=== PATIENT | female | born 1950 | race Caucasian/White ===

== ENCOUNTER 2023-02-26 10:52 | Emergency (ER) | payer OTHER, MEDICARE, SELFPAY ==
--- NOTE | ~2023-02-26 | XR_ITS ---
EXAMINATION: XR wrist LT min 3V DATE: 02/26/2023 11:39 INDICATION: Left wrist injury. TECHNIQUE: 3 views of left wrist were obtained. COMPARISON: None. FINDINGS: Bone alignment is normal. No fracture. There is mild osteoarthritis of triscaphe joint and severe osteoarthritis of first carpometacarpal joint. There is mild osteoarthritis of first metacarpo phalangeal joint and moderate osteoarthritis of first interphalangeal joint. IMPRESSION: 1. No fracture. 2. Polyarticular osteoarthritis. Reviewed, dictated and finalized at location A.
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
[2023-02-26 11:13] VITALS: BP 145/60; PULSE 64; RESP 20; TEMP 36.3; O2SAT 98
[2023-02-26 12:25] VITALS: BP 148/72; PULSE 72; RESP 18; O2SAT 98
--- NOTE | 2023-02-26 12:32 | PC.NURSE ---
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 +PMS POST RAYSA APPLICATION
== END 2023-02-26 12:25 | disposition home or self-care (01) ==
PROVIDERS: Emergency Provider Nurse Practitioner; PCP Physician Assistant
DX: S60.212A Contusion of left wrist, initial encounter (principal); V43.52XA Car driver injured in collision with other type car in traffic accident, initial encounter; M19.032 Primary osteoarthritis, left wrist
CPT/HCPCS: 73110; 99213; G0463

== ENCOUNTER → 2023-03-19 14:51 | Outpatient (CLI) | payer SELFPAY ==
--- NOTE | ~2023-03-19 | XR_ITS ---
XR wrist LT min 3V DATE: 03/19/2023 15:48 INDICATION: Left wrist pain TECHNIQUE: AP, lateral, bilateral oblique views COMPARISON: 02/26/2023 left wrist FINDINGS: Osteoarthritic changes noted at the triscaphe and first carpometacarpal joint, interphalang eal joint of the first digit. No fracture or dislocation, periosteal reaction or bone destruction, erosive change or chondrocalcino sis is detected. IMPRESSION: Osteoarthritis Reviewed, dictated and finalized at location L. IMPRESSION: Osteoarthritis
== END ==
PROVIDERS: PCP Family Medicine; Visit Provider Physician Assistant
DX: M19.032 Primary osteoarthritis, left wrist (principal)
CPT/HCPCS: 73110

== ENCOUNTER 2025-05-01 01:30 | Day surgery (SDC) | payer MEDICARE, MEDICAID, SELFPAY ==
[2025-04-25 15:05] VITALS: BMI 19.3
[2025-05-01 08:05] VITALS: BP 121/60; PULSE 74; RESP 16; TEMP 36.6; O2SAT 96; BMI 19.2
[2025-05-01] MEDS: LACTATED RINGERS 1,000 ML 150 ML IV CONT (08:23)
--- NOTE | 2025-05-01 08:29 | P.PNAN_ITS ---
Anes - Initial Pre Proc Eval Procedure: Operation Date: 05/01/25 09:30 Proposed Procedures p Colonoscopy - Jackson Zamora MD Date/Time: 05/01/25 08:29 Surgeon: Jackson Zamora MD Pre Op Diagnosis: Other fecal abnormalities Patient Data Age: 74 Gender: F Height: 1.63 m Weight: 50.8 kg Last Vital Signs Temp 36.6 C 05/01/25 08:05 Pulse 74 05/01/25 08:05 Resp 16 05/01/25 08:05 BP 121/60 05/01/25 08:05 Pulse Ox 96 05/01/25 08:05 O2 Del Method Room Air 05/01/25 08:05 Allergies Allergy/AdvReac Type Severity Reaction Status Date / Time No Known Allergies Allergy Verified 05/01/25 08:10 Home Medications ?Medication ?Instructions ?Recorded ?Confirmed ?Type valacyclovir 1 gram tablet 2,000 mg (2 x 1 gram) PO BID 1 day 10/14/24 05/01/25 Rx #4 tabs triamcinolone acetonide 0.5 % See Rx Instructions .Route 01/02/25 04/25/25 Rx topical cream .COMPLEX #15 grams hydrochlorothiazide 12.5 mg tablet See Rx Instructions .Route 01/16/25 05/01/25 Rx .COMPLEX #90 tabs levothyroxine 75 mcg tablet See Rx Instructions .Route 01/16/25 05/01/25 Rx .COMPLEX #90 tabs lisinopril 20 mg tablet See Rx Instructions .Route 01/16/25 05/01/25 Rx .COMPLEX #90 tabs omeprazole 20 mg capsule,delayed See Rx Instructions .Route 01/16/25 05/01/25 Rx release .COMPLEX #90 caps rosuvastatin 5 mg tablet 5 mg PO DAILY #100 tabs 02/07/25 05/01/25 Rx hydrocodone 5 mg-acetaminophen 325 1 tablet PO BID PRN pain #60 tabs 03/01/25 04/25/25 Rx mg tablet diazepam 5 mg tablet 5 mg PO DAILY PRN Anxiety #30 tabs 03/15/25 04/25/25 Rx buspirone 5 mg tablet 5 mg PO BID #90 tabs 03/28/25 05/01/25 Rx Patient hx anesthesia problems: none Family hx anesthesia problems: none Results Review: All pre-operative results and documents have been reviewed as part of the pre- operative evaluation. [facility] Past Medical History Medical History Tobacco use Anxiety and depression Hyperlipidemia, mixed Essential hypertension Hypothyroidism Osteoarthritis GERD (gastroesophageal reflux disease) Allergic rhinitis Surgical History Surgical History History of hysterectomy 1975 History of lumpectomy of left breast 1971 Social History Social History Smoking status: Former smoker Tobacco type: cigarettes Alcohol intake: never Substance use: current Substance use type: marijuana Last use: daily Lack of Transportation: No Lack of Food: Never True Current Housing: I Have Housing Concerned About Future Housing: No Difficulty Paying Gas/Electric Bills: No Difficulty Paying for Meds: No Currently Unemployed: YES Education: Trade/Vocational Certificate Difficulty w/ Childcare or Family Care: No Living arrangements: alone Occupation/Education: retired Gender identity (if verbalized by the patient): Female Sexual Orientation (if Verbalized by the Patient): Straight or Heterosexual Spiritual care concerns: No Anes - Eval Final PreProcedure Day of Procedure 05/01/25 08:29 Patient weight: normal Heart: regular rate and rhythm Lungs: clear to auscultation Airway: Mallampati scale class II Neurological: alert and oriented Last oral intake: >/= 8 hours ASA classification: III Emergent: no Anesthetic plan: proceed Anesthesia type and monitoring: general GIVS and standard monitoring Results Review: All pre-operative results and documents have been reviewed as part of the pre- operative evaluation. Informed Consent: The patient's anesthetic plan and its attendant risks and benefits were discussed with the patient/family/POA. Questions were solicited and answers provided to the satisfaction of the patient/family/POA.
--- NOTE | 2025-05-01 09:09 | PM.HPGS ---
History of Present Illness History of Present Illness Consent: Risks, benefits, and alternatives have been discussed and questions answered. Patient agrees to proceed with procedure. Chief complaint: Other fecal abnormalities Narrative: Anai Patel is a 74 year old female here for first colonoscopy, + cologuard Review of Systems Review of Systems: All systems reviewed & are unremarkable except as noted in HPI and below SAUNDRASH Past Medical History Medical History (Updated 05/01/25 @ 09:09 by Jackson Zamora MD) Positive colorectal cancer screening using Cologuard test Tobacco use Anxiety and depression Hyperlipidemia, mixed Essential hypertension Hypothyroidism Osteoarthritis GERD (gastroesophageal reflux disease) Allergic rhinitis Surgical History Surgical History History of hysterectomy 1975 History of lumpectomy of left breast 1971 Social History Social History Smoking status: Former smoker Tobacco type: cigarettes Alcohol intake: never Substance use: current Substance use type: marijuana Last use: daily Lack of Transportation: No Lack of Food: Never True Current Housing: I Have Housing Concerned About Future Housing: No Difficulty Paying Gas/Electric Bills: No Difficulty Paying for Meds: No Currently Unemployed: YES Education: Trade/Vocational Certificate Difficulty w/ Childcare or Family Care: No Living arrangements: alone Occupation/Education: retired Gender identity (if verbalized by the patient): Female Sexual Orientation (if Verbalized by the Patient): Straight or Heterosexual Spiritual care concerns: No Meds Home Medications and Allergies Home Medications ?Medication ?Instructions ?Recorded ?Confirmed ?Type valacyclovir 1 gram tablet 2,000 mg (2 x 1 gram) PO BID 1 day 10/14/24 05/01/25 Rx #4 tabs triamcinolone acetonide 0.5 % See Rx Instructions .Route 01/02/25 04/25/25 Rx topical cream .COMPLEX #15 grams hydrochlorothiazide 12.5 mg tablet See Rx Instructions .Route 01/16/25 05/01/25 Rx .COMPLEX #90 tabs levothyroxine 75 mcg tablet See Rx Instructions .Route 01/16/25 05/01/25 Rx .COMPLEX #90 tabs lisinopril 20 mg tablet See Rx Instructions .Route 01/16/25 05/01/25 Rx .COMPLEX #90 tabs omeprazole 20 mg capsule,delayed See Rx Instructions .Route 01/16/25 05/01/25 Rx release .COMPLEX #90 caps rosuvastatin 5 mg tablet 5 mg PO DAILY #100 tabs 02/07/25 05/01/25 Rx hydrocodone 5 mg-acetaminophen 325 1 tablet PO BID PRN pain #60 tabs 03/01/25 04/25/25 Rx mg tablet diazepam 5 mg tablet 5 mg PO DAILY PRN Anxiety #30 tabs 03/15/25 04/25/25 Rx buspirone 5 mg tablet 5 mg PO BID #90 tabs 03/28/25 05/01/25 Rx Allergies Allergy/AdvReac Type Severity Reaction Status Date / Time No Known Allergies Allergy Verified 05/01/25 08:10 Vital Signs Vital Signs - 24 hr 05/01/25 08:05 Temperature 97.8 F Pulse Rate 74 Respiratory Rate 16 Blood Pressure 121/60 Pulse Oximetry 96 Oxygen Delivery Room Air Exam Const: General: comfortable and no acute distress HENMT: Face/Nose/Sinus: Normal nares present Eyes: General: appearance normal, both eyes and all related structures Neck: Neck: no JVD Resp: Auscultation: clear to auscultation bilaterally Cardio: Rate: regular rate Rhythm: regular rhythm GI: Inspection: non-distended GI Palp: Yes Soft to palpation Skin: General skin exam: normal color Neuro: General: gait normal Speech: normal speech Extrem: General: normal to inspection Psych: Mental Status: mental status grossly normal Assessment and Plan Assessment and plan (1) Positive colorectal cancer screening using Cologuard test: Code(s): R19.5 - Other fecal abnormalities Status: Acute Assessment and Plan: colonoscopy
[2025-05-01 09:26] VITALS: BP 118/58; PULSE 74; RESP 18; O2SAT 96
--- NOTE | 2025-05-01 09:26 | S_PTH ---
PATIENT: Anai Patel LOC: [facility] Parry#:[id number] AGE/SX: 74/F ROOM: RE05/01/[address]: Jackson Zamora MD : 1950 BED: DIS: 05/01/2025 SPEC #: [id number] RECD: 05/01/25 10:24 STATUS: DENNIS REAlana #: [id number] TRISHA: 05/01/25 09:[address]: Jackson Zamroa DEPT: [facility] Surgical RECD BY: Precious Horvath ENTERED: 05/01/25 10:25 SP TYPE: Surgical OTHR DR: Yefri Hutchins MD Tissues: A - Colon Polypectomy Procedures: Hematoxylin and Eosin Stain Gross and Microscopic Level 4
[2025-05-01 09:36] VITALS: BP 116/57; PULSE 70; RESP 23; O2SAT 98
[2025-05-01 09:46] VITALS: BP 129/61; PULSE 67; RESP 23; O2SAT 98
== END 2025-05-01 09:52 | disposition home or self-care (01) ==
PROVIDERS: PCP Family Medicine; Visit Provider Internal Medicine Gastroenterology
PROC: 0DJD8ZZ Inspection of Lower Intestinal Tract, Via Natural or Artificial Opening Endoscopic (ICD-10-PCS; CPT 45378; principal; 2025-05-01 09:30)
DX: D12.4 Benign neoplasm of descending colon (principal); K64.8 Other hemorrhoids; K57.30 Diverticulosis of large intestine without perforation or abscess without bleeding; F41.8 Other specified anxiety disorders; E78.5 Hyperlipidemia, unspecified; I10 Essential (primary) hypertension; E03.9 Hypothyroidism, unspecified; K21.9 Gastro-esophageal reflux disease without esophagitis; M19.90 Unspecified osteoarthritis, unspecified site; F12.90 Cannabis use, unspecified, uncomplicated; Z79.891 Long term (current) use of opiate analgesic; Z98.890 Other specified postprocedural states; Z87.891 Personal history of nicotine dependence
CPT/HCPCS: 45385; 88305; J2704; J7120

== ENCOUNTER 2025-09-17 17:57 | Emergency (ER) | payer MEDICARE, MEDICAID, SELFPAY ==
--- NOTE | ~2025-09-17 | XR_ITS ---
EXAMINATION: XR hand RT min 3V DATE: 09/17/2025 22:00 INDICATION: Right hand lacerations TECHNIQUE: Posteroanterior, oblique and lateral views of the right hand were obtained. COMPARISON: None. FINDINGS: Bone alignment is normal. No fracture. Polyarticular osteoarthritis, severe at the triscaphe and at the distal interphalangeal joints, moderate severity at the first carpal metacarpal joint, mild at the metacarpophalangeal joints and mild to moderate at the proximal interphalangeal joints. There is some bandaging material projecting over the base of thumb and thenar eminence. No radiopaque foreign bodies. IMPRESSION: 1. No acute osseous abnormality or radiopaque foreign bodies. 2. Severe polyarticular osteoarthritis. Reviewed, dictated and finalized at location A.
[2025-09-17 18:01] VITALS: BP 127/80; PULSE 75; RESP 17; TEMP 36.4; O2SAT 97
--- NOTE | 2025-09-17 20:58 | ED.WOUNDLAC ---
HPI - Wound/Laceration General Chief Complaint: Wound/Laceration Stated Complaint: right hand wound Time Seen by Provider: 09/17/25 19:58 Source: patient Mode of arrival: ambulatory Limitations: no limitations History of Present Illness HPI narrative: This is a 74 year old female that presents to the ER for lacerations to the right hand. Reports she put her hand in a pile of yard waste that had some metal in it. Reports she is not up to date on tetanus vaccination. Denies decreased ROM or numbness. Related Data Allergies Allergy/AdvReac Type Severity Reaction Status Date / Time No Known Allergies Allergy Verified 05/03/25 10:13 Review of Systems Review of Systems: All systems reviewed & are unremarkable except as noted in HPI and below PMFSH Past Medical History Medical History Positive colorectal cancer screening using Cologuard test Tobacco use Anxiety and depression Hyperlipidemia, mixed Essential hypertension Hypothyroidism Osteoarthritis GERD (gastroesophageal reflux disease) Allergic rhinitis Surgical History Surgical History History of hysterectomy 1975 History of lumpectomy of left breast 1971 Social History Social History Smoking status: Former smoker (Quit in January 2024, 1 PPD since 18 with 12 year cessation about 20 years ago.) Tobacco type: cigarettes Alcohol intake: never Substance use: current Substance use type: marijuana Last use: daily Lack of Transportation: No Lack of Food: Never True Current Housing: I Have Housing Concerned About Future Housing: No Difficulty Paying Gas/Electric Bills: No Difficulty Paying for Meds: No Currently Unemployed: YES Education: Trade/Vocational Certificate Difficulty w/ Childcare or Family Care: No Living arrangements: alone Occupation/Education: retired Gender identity (if verbalized by the patient): Female Sexual Orientation (if Verbalized by the Patient): Straight or Heterosexual Spiritual care concerns: No Exam Narrative: GENERAL: Well-appearing, well-nourished, and in no acute distress. HEAD: Normocephalic, atraumatic. EYES: EOMI. EXTREMITIES: Normal range of motion. No edema. 1 small lacerations to the palmar aspect of the hand. One large laceration to the dorsal aspect hand into subcutaneous tissue SKIN: Warm, dry, no rash. NEURO: No focal deficits. Alert and oriented x3. PSYCH: Normal mood and affect Course Vital Signs Vital signs: Vital Signs Temperature 97.6 F 09/17/25 18:01 Pulse Rate 75 09/17/25 18:01 Respiratory Rate 17 09/17/25 18:01 Blood Pressure 127/80 09/17/25 18:01 Pulse Oximetry 97 09/17/25 18:01 Temperature 97.6 F 09/17/25 18:01 Pulse Rate 75 09/17/25 18:01 Respiratory Rate 17 09/17/25 18:01 Blood Pressure 127/80 09/17/25 18:01 Pulse Oximetry 97 09/17/25 18:01 Procedures Laceration Laceration 1: Date: 09/17/25 Time: 22:42 Site: hand Side (If applicable): right Size (cm): 3 Description: linear Depth: simple, single layer Local Anesthetic: lidocaine 1% and with epi Amount of anesthesia used (mL): 2 Pre-repair: wound explored and irrigated ====== Skin Level ====== Skin layer closed with: nylon and steri strips Size (cm): 4-0 Number of sutures: 4 Technique: simple, interrupted ====== Subcutaneous Layer ====== ====== Muscle Layer ====== ====== Tendon Layer ====== MDM - Wound/Laceration MDM Narrative Medical decision making narrative: Patient presents emergency department for laceration to her right hand. She is neurovascularly intact. The x-ray without acute osseous abnormalities or evidence of foreign body. Wound was irrigated and closed with sutures and Steri-Strips. She was updated on tetanus vaccination. She is to follow up with primary provider. She was given warnings to return to the ER Differential Diagnosis Differential diagnosis: Likely laceration, abrasion and avulsion of skin Imaging Data Radiologist's impression: Right hand x-ray: No acute osseous abnormalities. Osteoarthritic changes Critical Care Time Critical Care Time Critical Care Time: No Discharge Plan Discharge Clinical Impression: Laceration Patient Disposition: Home Condition: Stable Instructions: Care For Your Stitches (ED), Laceration (ED) Additional Instructions: Return to the emergency department if you experience fever, redness or swelling of your wound, abnormal drainage from your wound, or any other symptoms that are concerning to you. Apply antibiotic ointment daily. Do not soak the wound. Clean with mild soap and water daily. Tylenol or Ibuprofen as needed for pain Follow-up with your primary care doctor for suture removal in 10-14 days. Patient Language: Slovenian Prescriptions: No Action valacyclovir 1 gram tablet 2,000 mg PO BID 1 Days Qty: 4 5RF triamcinolone acetonide 0.5 % cream See Rx Instructions .ROUTE .COMPLEX Qty: 15 5RF Dose Instruction: APPLY TOPICALLY TO THE AFFECTED AREA DAILY NEEDED FOR ECZEMA Rx Instructions: APPLY TOPICALLY TO THE AFFECTED AREA DAILY NEEDED FOR ECZEMA hydrochlorothiazide 12.5 mg tablet See Rx Instructions .ROUTE .COMPLEX Qty: 90 2RF Dose Instruction: TAKE 1 TABLET BY MOUTH DAILY Rx Instructions: TAKE 1 TABLET BY MOUTH DAILY lisinopril 20 mg tablet See Rx Instructions .ROUTE .COMPLEX Qty: 90 2RF Dose Instruction: TAKE 1 TABLET BY MOUTH DAILY Rx Instructions: TAKE 1 TABLET BY MOUTH DAILY omeprazole 20 mg capsule,delayed release(DR/EC) See Rx Instructions .ROUTE .COMPLEX Qty: 90 2RF Dose Instruction: TAKE 1 CAPSULE BY MOUTH DAILY Rx Instructions: TAKE 1 CAPSULE BY MOUTH DAILY buspirone 5 mg tablet 5 mg PO BID Qty: 90 0RF levothyroxine 75 mcg tablet See Rx Instructions .ROUTE .COMPLEX Qty: 90 1RF Dose Instruction: TAKE 1 TABLET BY MOUTH EVERY DAY Rx Instructions: TAKE 1 TABLET BY MOUTH EVERY DAY rosuvastatin 5 mg tablet 5 mg PO DAILY Qty: 100 1RF diazepam 5 mg tablet 5 mg PO DAILY PRN (Reason: Anxiety) Qty: 30 0RF hydrocodone-acetaminophen 5-325 mg tablet 1 tablet PO BID PRN (Reason: pain) Qty: 60 0RF Follow-up/Referrals: Yefri Hutchins MD [Primary Care Provider, Family Practice]
[2025-09-17] MEDS: TETANUS,DIPHTHERIA,AC PERTUSSIS ADULT (0.5 ML) BOOSTRIX IM (21:27)
[2025-09-17] MEDS: ACETAMINOPHEN 500 MG TABLET 1000 MG PO (21:28)
[2025-09-17] MEDS: LIDOCAINE, EPINEPHRINE, TETRACAINE VISCOUS SOLN 3 ML TOPICAL (21:36)
[2025-09-17 22:54] VITALS: BP 132/72; PULSE 89; RESP 18; TEMP 36.8; O2SAT 99
== END 2025-09-17 22:55 | disposition home or self-care (01) ==
PROVIDERS: Emergency Provider Physician Assistant; PCP Family Medicine
DX: S61.411A Laceration without foreign body of right hand, initial encounter (principal); Z23 Encounter for immunization; I10 Essential (primary) hypertension; E78.2 Mixed hyperlipidemia; E03.9 Hypothyroidism, unspecified; M19.90 Unspecified osteoarthritis, unspecified site; K21.9 Gastro-esophageal reflux disease without esophagitis; F41.9 Anxiety disorder, unspecified; F32.A Depression, unspecified; Z87.891 Personal history of nicotine dependence; Z90.710 Acquired absence of both cervix and uterus; Z79.899 Other long term (current) drug therapy; W26.8XXA Contact with other sharp object(s), not elsewhere classified, initial encounter
CPT/HCPCS: 12002; 73130; 90471; 90715; 99282; A9270